=== PATIENT | male | born 1955 | race Asian ===

== ENCOUNTER 2019-09-20 10:38 | Inpatient (IN) | payer OTHER ==
[~2019-09-20] VITALS: Ht 162.6 cm; Wt 65.6 kg
[2019-09-20] MEDS: SODIUM CHLORIDE 0.9% 1,000 ML IV SCH ×2 (09:25→12:51)
[~2019-09-20 10:38] MED LIST: AML5T PO; TAM04C PO
[2019-09-20] MEDS ORDERED: SODIUM CHLORIDE 0.9% 1,000 ML IVB ONE (10:49)
[2019-09-20] MEDS ORDERED: KETOROLAC TROMETH 30 MG/ML 1ML VIAL ONE (10:55)
[2019-09-20] MEDS ORDERED: KETOROLAC TROMETH 15 mg/ml 1ML VL IV ONE (11:00)
[2019-09-20] MEDS ORDERED: ONDANSETRON HCL 4 MG/2 ML VIAL IV ONE (11:00)
[2019-09-20 11:13] LABS: Basophils # (auto) 0 10 ^3/uL (0-0.2); Basophils % (auto) 0.4 % (0.0-2.0); Eosinophils # (auto) 0 10 ^3/uL (0-0.8); Eosinophils % (auto) 0.1 % (0.0-7.0); Hematocrit 47.5 % (41.0-53.0); Lymphocytes # (auto) 1.1 10 ^3/uL (0.4-5.4); Lymphocytes % (auto) 11.6 % (10.0-50.0); Mean Corpuscular Hemoglobin 28.9 pg (28.0-32.0); Mean Corpuscular Hgb Conc. 33.6 g/dL (32.0-36.0); Monocytes # (auto) 0.4 10 ^3/uL (0-1.3); Monocytes % (auto) 4.6 % (0.0-12.0); Neutrophils # (auto) 8.1 10 ^3/uL (1.6-8.6); Neutrophils % (auto) 83.3 % (37.0-80.0); Nucleated Red Blood Cells % 0.1 %; Platelet Count (auto) 190 10^3/uL (140-450); Red Blood Cells 5.52 10^6/uL (4.5-5.90); Red Cell Distribution Width 13.4 % (11.8-14.3); White Blood Cell 9.7 10^3/uL (4.4-10.8)
[2019-09-20] MEDS ORDERED: cloNIDine HCL 0.1 MG TAB PO ONE (11:30)
[2019-09-20 11:33] LABS: Albumin 3.8 g/dL (3.4-5.0); Calcium 8.7 mg/dL (8.5-10.1)
[2019-09-20 11:36] LABS: BUN/Creatinine Ratio 11.6; Bilirubin, Total 0.6 mg/dL (0.2-1.0)
[2019-09-20] MEDS ORDERED: NIFEdipine ER 30 MG TAB PO ONE (12:45)
[2019-09-20] MEDS ORDERED: ACETAMINOPHEN 500 MG TAB PO PRN (12:45)
[2019-09-20] MEDS ORDERED: ONDANSETRON HCL 4 MG/2 ML VIAL IV PRN (12:45)
[2019-09-20] MEDS ORDERED: MORPHINE SULF INJ 2 MG/ML SYRINGE 1ML IV PRN ×2 (12:45)
[2019-09-20] MEDS ORDERED: NITROGLYCERIN 0.4 MG SL TAB SL PRN (12:45)
[2019-09-20] MEDS: TAMSULOSIN HYDROCHLORIDE 0.4 MG CAP PO SCH ×2 (12:51→18:12)
[2019-09-20] MEDS: LABETALOL HCL 5 MG/ML 4ML SYRINGE IV PRN (13:07)
[2019-09-20] MEDS: NITROGLYCERIN 0.4MG/HR TOPICAL PATCH TD SCH (13:30)
[2019-09-20 21:00] VITALS: BP_SYST 130; BP_SYST 132; BP_DIAS 81
--- NOTE | 2019-09-20 21:00 | NUR ---
Telemetry admit from ER KINSEY FAITH admitted to Telemetry unit after SBAR received. Patient oriented to Vero curiel RN, unit, room, bed, and unit policies regarding patient care and visiting hours. Patient now on continuous telemetry monitoring, tele box # [id number] and telemetry reading on arrival to unit is SR in the 80s. Patient placed on bed, weighed by bedscale and encouraged to call if they need something. All questions and concerns addressed, patient verbalized understanding. Patient is Mandarin speaking, all questions answered by his soncinthia Lange. Number in contact list.
--- NOTE | 2019-09-20 22:00 | NUR ---
Patient does not complain of pain. Blue phone for interpretation at bedside. Mandarin speaking only. NS running at 125ml/hr as ordered.
[2019-09-21] MEDS: SODIUM CHLORIDE 0.9% 1,000 ML IV SCH ×2 (04:08→16:03)
[2019-09-21 05:00] VITALS: BP_SYST 122; BP_SYST 132; BP_DIAS 70; BP_DIAS 76
[2019-09-21 05:56] LABS: Basophils # (auto) 0 10 ^3/uL (0-0.2); Basophils % (auto) 0.3 % (0.0-2.0); Eosinophils # (auto) 0.1 10 ^3/uL (0-0.8); Eosinophils % (auto) 0.8 % (0.0-7.0); Hematocrit 41.7 % (41.0-53.0); Hemoglobin 14.1 g/dL (13.5-17.5); Lymphocytes # (auto) 1.2 10 ^3/uL (0.4-5.4); Lymphocytes % (auto) 16.9 % (10.0-50.0); Mean Corpuscular Hemoglobin 29.2 pg (28.0-32.0); Mean Corpuscular Hgb Conc. 33.9 g/dL (32.0-36.0); Monocytes # (auto) 0.5 10 ^3/uL (0-1.3); Monocytes % (auto) 7.9 % (0.0-12.0); Neutrophils # (auto) 5.1 10 ^3/uL (1.6-8.6); Neutrophils % (auto) 74.1 % (37.0-80.0); Nucleated Red Blood Cells % 0.1 %; Platelet Count (auto) 161 10^3/uL (140-450); Red Blood Cells 4.85 10^6/uL (4.5-5.90); Red Cell Distribution Width 12.8 % (11.8-14.3); White Blood Cell 6.8 10^3/uL (4.4-10.8)
[2019-09-21 06:27] LABS: Potassium 3.5 mmol/L (3.5-5.1)
[2019-09-21 06:32] LABS: BUN/Creatinine Ratio 11.2; Calcium 7.5 mg/dL (8.5-10.1)
--- NOTE | 2019-09-21 07:30 | NUR ---
Opening Note Assumed patient care from LUIGI RN.
--- NOTE | 2019-09-21 08:00 | NUR ---
Patient Rounds/Planning Lead Utilized blue phone for interpretation, Mandarin. Patient states he currently has no pain at this time. Patient oriented to room and plan of care, patient verbalized understanding.Will continue to monitor.
[2019-09-21 08:46] VITALS: BP 127/78
[2019-09-21] MEDS: NIFEdipine ER 30 MG TAB PO SCH (09:44)
[2019-09-21] MEDS: FAMOTIDINE 20 MG TAB PO SCH (09:44)
--- NOTE | 2019-09-21 11:00 | NUR ---
Pain Assessment Patient complains of 6/10 left quadrant pain. Bath administered, see EMAR.
[2019-09-21] MEDS: HYDROcodone-ACET 5/325MG TAB PO PRN ×3 (11:01→23:25)
[2019-09-21] MEDS: NITROGLYCERIN 0.4MG/HR TOPICAL PATCH TD SCH (11:07)
--- NOTE | 2019-09-21 12:00 | NUR ---
Pain Reassessment Patient states he has no pain at this time.
[2019-09-21 12:41] VITALS: BP 148/91
--- NOTE | 2019-09-21 13:36 | NUR ---
Family Spoke with son, Nazario, per patient request, and updated him on plan of care.
[2019-09-21 16:42] VITALS: BP 152/94
--- NOTE | 2019-09-21 16:58 | NUR ---
MD Spoke with Dr. Elizabeth regarding plan of care. Per MD, patient to stay inpatient for 48hours to observe if patient passes stone.
--- NOTE | 2019-09-21 17:00 | NUR ---
Urine Sample Urine sample sent to lab.
--- NOTE | 2019-09-21 17:00 | NUR ---
Pain Assessment Patient currently complaining of 6/10 pain on left side. Jefferson requested for pain. See EMAR.
--- NOTE | 2019-09-21 17:00 | NUR ---
Patient Rounds Patient currently out of bed, sitting on chair requesting to change gown. Patient provided with gown and assisted. No signs of distress at this time, respirations are even and unlabored, will continue to monitor.
[2019-09-21] MEDS: TAMSULOSIN HYDROCHLORIDE 0.4 MG CAP PO SCH (17:06)
[2019-09-21 17:36] LABS: Urine Bacteria NONE SEEN /hpf (None Seen); Urine Blood Negative /uL (Negative); Urine Specific Gravity 1.009 (1.001-1.035); Urine WBC <1 /hpf (0 - 3)
--- NOTE | 2019-09-21 19:00 | NUR ---
Closing Note Gave report to LUIGI Rn.
--- NOTE | 2019-09-21 19:05 | NUR ---
Opening Shift Note Assumed care of patient, awake and alert. No S/S of distress/SOB or pain. Patient in the lowest possible position with call light within reach. Will continue to monitor for changes Q1hr and PRN.
[2019-09-21 20:00] VITALS: BP 169/96
--- NOTE | 2019-09-21 20:25 | NUR ---
IV insertion IV access obtained, via clean sterile technique by inserting a 22 gauge catheter in the patients left forearm after 1 attempt. IV secured properly. No trauma to site. Patient tolerated well.
--- NOTE | 2019-09-21 20:37 | NUR ---
IV removal IV DC'd with clean sterile technique, catheter fully intact. Pressure dressing applied to site. Patient tolerated well. Patient stated that his IV was hurting every time he bent it, the pain he said was high and preferred an IV where it wouldn't get smashed.
[2019-09-21] MEDS: METOPROLOL TARTRATE 25 MG TAB PO SCH (21:08)
[2019-09-21 22:00] VITALS: BP 169/96
--- NOTE | 2019-09-21 23:25 | NUR ---
Patient complained of pain in his left flank. mygall has been working for patient when this pain comes on. Pain was said to be 8/10. [place] given per patient request. Will continue to monitor for pain.
[2019-09-22] VITALS (7 sets, daily range): BP systolic 120–157; BP diastolic 72–95
[2019-09-22] MEDS: SODIUM CHLORIDE 0.9% 1,000 ML IV SCH ×3 (01:30→13:46)
--- NOTE | 2019-09-22 04:40 | NUR ---
Patient to pee in urinal so that we can strain for stones. Patient has peed a few times tonight and has proceeded to dump his urine without being strained. Patient stated he understood, but will need to reinterpret the need to save his urine for us to strain. Will use blue phone for interpretation once patient is awake to relay the information to the patient.
[2019-09-22 06:27] LABS: Calcium 8.1 mg/dL (8.5-10.1); Magnesium 2.1 mg/dL (1.6-2.6)
[2019-09-22 06:30] LABS: BUN/Creatinine Ratio 10.1
--- NOTE | 2019-09-22 07:55 | NUR ---
OPENING SHIFT NOTE Assumed care of patient. PT is awake and alert. No S/S of distress/SOB. BED IN LOWEST, LOCKED POSITION WITH SIDERAILS UP x2 AND CALL LIGHT WITHIN REACH. Instructed on POC and to call for assist PRN, will continue to monitor for changes Q1hr and PRN.
[2019-09-22] MEDS: METOPROLOL TARTRATE 25 MG TAB PO SCH ×2 (10:02→21:34)
[2019-09-22] MEDS: NIFEdipine ER 30 MG TAB PO SCH (10:03)
[2019-09-22] MEDS: FAMOTIDINE 20 MG TAB PO SCH (10:03)
[2019-09-22] MEDS: NITROGLYCERIN 0.4MG/HR TOPICAL PATCH TD SCH (10:04)
[2019-09-22] MEDS ORDERED: MANNITOL FTV 25% 12.5 GM/50 ML 50 ML IV ONE (11:15)
[2019-09-22 14:13] LABS: Partial Thromboplastin Time 31.3 sec (23.64-32.05)
[2019-09-22] MEDS: LABETALOL HCL 5 MG/ML 4ML SYRINGE IV PRN ×2 (14:27→18:37)
[2019-09-22] MEDS: TAMSULOSIN HYDROCHLORIDE 0.4 MG CAP PO SCH (18:37)
--- NOTE | 2019-09-22 19:00 | NUR ---
Opening Shift Note Assumed care of patient, awake and alert. No S/S of distress/SOB or pain. Instructed on POC and to call for assist PRN, will continue to monitor for changes Q1hr and PRN. Patient in the lowest possible position with bed rails up x2 and call light within reach.
--- NOTE | 2019-09-23 00:17 | NUR ---
Strained 900mls of urine, no kidney stones passed. Will continue to monitor and strain urine.
--- NOTE | 2019-09-23 02:19 | NUR ---
200ml Urine strained. No kidney stones noted. Will continue to monitor.
[2019-09-23] MEDS: SODIUM CHLORIDE 0.9% 1,000 ML IV SCH (04:03)
[2019-09-23 05:00] VITALS: BP 137/83
[2019-09-23 06:10] LABS: BUN/Creatinine Ratio 13.7; Calcium 8.4 mg/dL (8.5-10.1); Potassium 3.5 mmol/L (3.5-5.1)
--- NOTE | 2019-09-23 06:27 | NUR ---
300 ml urine strained. No kidneys stoned noted. Will continue to monitor.
--- NOTE | 2019-09-23 06:52 | NUR ---
Closing shift Patient in lowest possible position with bed rails up x2 and call light within reach. No complaints of pain. Will endorse to day shift RN Summer.
--- NOTE | 2019-09-23 07:45 | NUR ---
Opening Note Received report from manager night RN. Patient is awake, alert and oriented x4. No signs or symptoms of distress noted at this time. Patient is on room air, respirations even and unlabored. Bed in low and locked position, call light within reach. Will continue to monitor Q1 and PRN.
[2019-09-23 09:00] VITALS: BP 141/77
[2019-09-23] MEDS: NIFEdipine ER 30 MG TAB PO SCH (10:03)
[2019-09-23] MEDS: FAMOTIDINE 20 MG TAB PO SCH (10:03)
[2019-09-23] MEDS: METOPROLOL TARTRATE 25 MG TAB PO SCH (10:04)
[2019-09-23] MEDS: HYDROcodone-ACET 5/325MG TAB PO PRN (10:42)
--- NOTE | 2019-09-23 10:55 | NUR ---
Dr. Trujillo at bedside Discussing plan of care with patient, son Nazario on the phone, and this RN. Patient to discharge home today. Will continue to monitor Q1 hour and PRN.
[2019-09-23] MEDS ORDERED: TAM04C PO (12:16)
[2019-09-23] MEDS ORDERED: MET25T PO (12:16)
[2019-09-23] MEDS ORDERED: NIFE1TAB31 PO (12:16)
[2019-09-23 13:00] VITALS: BP 140/92
[2019-09-23 15:43] VITALS: BP 141/77
--- NOTE | 2019-09-23 16:14 | NUR ---
DISCHARGE Discharge instructions given as ordered. Encourage to follow up with PMD as instructed. All questions and concerns addressed with patient sendy Lange, verbalized understanding. Medication reconciliation form completed and copy given to patient. Telemetry unit returned to ICU. Patient ambulated to private vehicle with all personal belongings, accompanied by staff. No distress noted at time of departure.
== END 2019-09-23 16:20 | disposition home or self-care (01) | DRG 465 ==
LOC: ER 10:38 → TELE 10:39 → TELE-WESTW 20:54
PROVIDERS: ADMIT Nurse Practitioner Acute Care; ATTEND Internal Medicine
DX: N13.2 Hydronephrosis with renal and ureteral calculous obstruction (principal); N17.9 Acute kidney failure, unspecified; N18.3 Chronic kidney disease, stage 3 (moderate); I16.0 Hypertensive urgency; N40.0 Benign prostatic hyperplasia without lower urinary tract symptoms; I12.9 Hypertensive chronic kidney disease with stage 1 through stage 4 chronic kidney disease, or unspecified chronic kidney disease; Z82.49 Family history of ischemic heart disease and other diseases of the circulatory system; Z87.442 Personal history of urinary calculi
CPT/HCPCS: 36415; 71045; 74176; 80048; 80053; 80061; 81001; 83036; 83690; 83735; 84443; 85025; 85610; 85730; 87086; 93005; 96374; 96375; G0378; J1885; J2405; J3490